=== PATIENT | male | born 1990 | race Caucasian/White ===

== ENCOUNTER → 2019-12-01 14:01 | Outpatient (CLI) | payer OTHER, SELFPAY ==
[2019-12-02 20:34] LABS: COVID19 Sendout Not Detected (Not Detect)
== END ==
PROVIDERS: Visit Provider Nurse Practitioner
DX: Z11.59 Encounter for screening for other viral diseases (principal)
CPT/HCPCS: 87635

== ENCOUNTER 2019-12-04 09:52 | Day surgery (SDC) | payer OTHER, SELFPAY ==
[2019-12-04] VITALS (7 sets, daily range): BP systolic 117–143; BP diastolic 72–89; PULSE 77–90; RESP 11–20; TEMP 36.3–37; O2SAT 94–99; BMI 22.3
--- NOTE | 2019-12-04 | PATH_ITS ---
[facility] Accession Number: [id number] . 01 Material submitted: . colon - COLON BX . 02 Diagnosis: Colon, Biopsy: Colonic mucosa with no diagnostic abnormality. Negative for active, chronic, and microscopic colitis. Negative for dysplasia and malignancy. . MRV 12/06/2019 1055 Local . 02 Electronically signed: . Scott Flores MD, PhD, Pathologist NPI- [id number] . 01 Gross description: . COLON BX: Received in formalin are 3 fragment(s) of velez, soft tissue measuring 0.3 x 0.2 x 0.1 cm to 0.2 x 0.2 x 0.1 cm submitted entirely in 1 cassette(s) /QBJ 12/05/2019 0801 Local . 02 Pathologist provided ICD-10: R19.7 . 02 CPT . 925312 Performed at: 01 [facility] [address] [facility] [place], [place], [place] [id number] MD Kevin Santos MD Phone: [phone] Performed at: 02 [facility] [place] [address] [place], [place] [id number] MD Merle Rangel MD Phone: [phone]
--- NOTE | 2019-12-04 11:03 | PM.PREOP ---
Pre-operative Note COVID-19 COVID-19 status: Negative Interval Note History & Physical reviewed/Exam performed by Physician: Yes Changes to H&P: No ASA Class (for procedural sedation): I
--- NOTE | 2019-12-04 11:03 | PM.OP.ENDO ---
Operative Date/Time/Diagnoses Date of procedure: 12/04/19 Time of procedure: 11:04 Pre-op diagnosis: See indication and findings Procedure & Clinicians Study performed: Colonoscopy with biopsy Same procedure as scheduled: Yes Indications: Diarrhea Surgeon: Ck Worthy Procedure Notes Procedure in detail: After informed consent was obtained placed left lateral decubitus position. The video colonoscope was introduced the rectum slowly advanced cecum. Ic valve was identified and intubated. On withdrawal retroflexed view was performed. Preparation was good. Patient tolerated procedure well. Blood loss none Complications none Sedation Total sedation time 14 minutes Versed 6 mg fentanyl 100 mg IV titration Findings 1. Normal terminal ileum 2. Normal colonoscopy to cecum. Random biopsies taken to rule out microscopic colitis I doubt patient's biopsies will be abnormal and therefore he needs to be set up for [employer] to rule out Crohn's disease.
[2019-12-04] MEDS: MIDAZOLAM 5 MG/5 ML VIAL IV ×5 (11:11→11:17)
[2019-12-04] MEDS: fentaNYL 250 MCG/5 ML INJ IV (11:11)
== END 2019-12-04 12:35 | disposition home or self-care (01) ==
LOC: ENDO 09:55
PROVIDERS: Referring Provider Internal Medicine Gastroenterology; Visit Provider Internal Medicine Gastroenterology
PROC: 0DJD8ZZ Inspection of Lower Intestinal Tract, Via Natural or Artificial Opening Endoscopic (ICD-10-PCS; CPT 45378; principal; 2019-12-04 12:30)
DX: R19.7 Diarrhea, unspecified (principal)
CPT/HCPCS: 45380; J2250; J3010